=== PATIENT | female | born 2005 | race Caucasian/White ===

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

== ENCOUNTER 2024-10-10 05:10 | Inpatient (IN) ==
[2024-10-10] MEDS ORDERED: OXYTOCIN 30 UNITS/NSS 30 UNITS/500 ML BAG IV PRN ×2 (05:45→05:49)
[2024-10-10] MEDS ORDERED: LACTATED RINGER'S 1,000 ML IV PRN (05:45)
[2024-10-10] MEDS ORDERED: HYDROCORTISONE ACETATE 25 MG SUPP PR PRN (05:49)
[2024-10-10] MEDS ORDERED: bisacodyL 10 MG SUPP PR PRN (05:49)
[2024-10-10] MEDS ORDERED: IBUPROFEN 600 MG TAB PO PRN (05:49)
--- NOTE | 2024-10-10 06:07 | Delivery Summary ---
Vaginal Delivery Summary Date of Service October 10, 2024 Vaginal Delivery Summary and 1st Degree LAC Patient is a 18 yo female EDC [birth year] who presents in active labor at 36 2/7 weeks. she had GBS swab done yesterday so it is still pending. She started having suprapubic cramping at 0200 with a small amount of blood. the cramping continued and then she lost her mucus plug at 0430. SPROM for thin mec fluid occured 10 minutes prior to arrival at [facility]. Upon arrival in L&D she promptly delivered a viable female - Dr. Almaraz was in the room next door and attended the delivery. The baby was vigorous, crying, and moving all 4 limbs. I clamped and cut the cord after about 1 minute. After cord blood was obtained, the placenta was expressed intact with a 3 vessel cord. bleeding was controlled with IM pitocin and fundal massage. After anesthetizing the area of a first degree perineal laceration with 1% lidocaine, the tear was repaired in the usual fashion with 3-0 chromic. Baby was taken to the nursery for further monitoring because of late gestation and low O2 at 10 minutes of life. QBL is 513 mls. complicated by late care and (+) UDS for methamphetamine. Nursery aware. [facility] Vaginal Delivery Charge Delivery Type Details: and 1st Degree LAC
[2024-10-10 06:21] LABS: Hematocrit (blood only) 30.3 % (37.0-47.0); Hemoglobin 10.3 g/dl (12.0-16.0); Mean Corpuscular Hemoglobin 31.5 pg (25.0-34.0); Mean Corpuscular Volume 92.7 fL (80.0-100.0); Mean Platelet Volume 9.8 fL (9.4-12.4); Platelet Count 353 K/uL (130-400); RDW Coefficient of Variation 13.2 % (11.5-14.5); RDW Standard Deviation 44.7 fL (36.4-46.3); Red Blood Count 3.27 M/uL (4.20-5.40); White Blood Count 14.82 K/ul (4.8-10.8)
[2024-10-10] MEDS: LIDOCAINE 1% LOCAL 20 ML VIAL INFIL PRN (06:21)
[2024-10-10] MEDS: OXYTOCIN 10 UNITS/ML 10ML VIAL IM ONE (06:21)
[2024-10-10] MEDS: DIPHTHER/TETAN/PERTUS Vaccine (Tdap, Adol/Adult) 0.5mL IM ONE (06:38)
[2024-10-10] MEDS: ACETAMINOPHEN 325 MG TAB PO PRN (06:40)
[2024-10-10 08:53] LABS: Amphetamines+Metham, Urine Pos (Neg); Barbiturates, Urine Neg (Neg); Benzodiazepine, Urine Neg (Neg); Cocaine, Urine Neg (Neg); Fentanyl, Urine Neg (Neg); MDMA (Ecstacy), Urine Pos (Neg); Marijuana, Urine Pos (Neg); Methadone, Urine Neg (Neg); Opiate, Urine Neg (Neg); Phencyclidine, Urine Neg (Neg)
[2024-10-10] MEDS: DOCUSATE SODIUM 100 MG CAP PO SCH (09:30)
[2024-10-10] MEDS: PRENATAL VITAMIN 1 TAB PO SCH (09:30)
[2024-10-10] MEDS: BENZOCAINE 20% SPRY 85 APPLN/85 GM CAN EXT PRN (17:27)
--- NOTE | 2024-10-11 05:57 | Obstetrical Progress Note ---
Date of Service October 11, 2024 Assessment & Plan (1) Encounter for care and examination after delivery: (2) Substance abuse: (3) Tobacco smoking affecting , antepartum: (4) Late care: Plan Pt is 18 yo post- day 1 s/p at 36w0d. complicated by UDS pos of methamphetamines, marijuana and MDMA. GBS results were unknown at delivery, received IV antibiotics. - Encourage ambulation - Tylenol and ibuprofen for pain control - Likely discharge 10/12 Admission and Anticipated Discharge Date Admission Date: October 10, 2024 Supervising Physician Co-Signing Physician Notes Resident Physician Supervision Note: I interviewed and examined the patient. Discussed with Dr. galvez and agree with findings and plan as documented in the note. Any exceptions or clarifications are listed here: PP1 s/p precip . VSS, exam benign. Continue routine care, depo ordered previously to be given while admitted at pt request Documented By: Sharmin Luna MD Subjective Pt is 18 yo post- day 1 s/p at 36w0d. complicated by UDS pos of methamphetamines, marijuana and MDMA. GBS results were unknown at delivery Ambulation:In room Voiding:voiding normally Passing gas: yes BM: No Diet tolerance:regular diet Lochia:bloody, no clots Feeding type: Formula Current pain level: 0 /10 improved with ibuprofen and tylenol Resting comfortably this morning in NAD. Denies MERA, CP, SOB, N/V/D, LE pain/swelling. Review of Systems Review of Systems: As per HPI Physical Exam Constitutional: WD/WN, vitals as above Respiratory: normal respiratory effort, lungs clear to auscultation Cardiovascular: RRR, no murmur, no edema Gastrointestinal (Abdomen): normal bowel sounds, soft, nontender, no hepatosplenomegaly Uterine fundus firm and at level of umbilicus Neurologic: PERRL, EOMI, accommodation nl, no face palsy, no dysarthria Moving all 4 extremities on command Psychiatric: A+Ox3, euthymic affect Results & Data Vital Signs (Past 12 Hours) Vital Signs Temp Pulse Resp BP O2 Del Method 10/11/24 03:00 36.5 C 94 H 20 101/69 Room Air 10/10/24 23:00 36.5 C 84 16 124/79 Room Air 10/10/24 19:45 36.7 C 92 H 18 133/85 Room Air Resident Activity Tracking Resident Involvement: Resident Care Provided Care Provided: Adult Hospital Medicine
[2024-10-11 06:46] LABS: Hematocrit (blood only) 29.9 % (37.0-47.0); Hemoglobin 10.2 g/dl (12.0-16.0); Mean Corpuscular Hemoglobin 32.2 pg (25.0-34.0); Mean Corpuscular Hgb Conc 34.1 g/dL (32.0-36.0); Mean Corpuscular Volume 94.3 fL (80.0-100.0); Mean Platelet Volume 10.3 fL (9.4-12.4); Platelet Count 402 K/uL (130-400); RDW Coefficient of Variation 13.2 % (11.5-14.5); RDW Standard Deviation 45.5 fL (36.4-46.3); Red Blood Count 3.17 M/uL (4.20-5.40); White Blood Count 13.54 K/ul (4.8-10.8)
[2024-10-11 16:23] VITALS: TEMP 98.2; O2SAT 96
[2024-10-11 17:37] VITALS: PULSE 110
[2024-10-11 17:38] VITALS: BP 123/80; RESP 16
[2024-10-11] MEDS ORDERED: bisacodyL 5 MG TABEC PO SCH (20:00)
== END 2024-10-11 19:40 | disposition home or self-care (01) | DRG 807 ==
LOC: OPB 05:10 → 4S1 05:15 → 4E2 08:14